=== PATIENT | female | born 1985 | race Two or more races ===

== ENCOUNTER 2025-04-23 14:33 | Emergency (ER) | payer OTHER ==
[~2025-04-23] VITALS: Ht 162.6 cm; Wt 93.6 kg
[2025-04-23 14:36] VITALS: TEMP 97.7
--- NOTE | 2025-04-23 14:58 | ED.PDOC ---
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 Patient states, that she is currently [id number] (LMP on 03/24/25) and has been experiencing spontaneous onset, vaginal bleeding x1day. Patient reports, additional associated symptoms of dull achy back pain. Patient denies any recent sexual intercourse, trauma, injury, fall, or abdominal cramping. No other symptoms or modifying factors are present at this time. Chief Complaint: Vaginal Bleed Time Seen by MD: 14:45 Reviewed Notes: Nurses Notes, Medications, Allergies Allergies: Coded Allergies: NO KNOWN ALLERGIES (Unverified , 04/23/25) Information Source: Patient Mode of Arrival: Ambulatory Timing: Days Prehospital treatment: None Severity: Moderate Vaginal Lesions: None Vaginal Mass: None Onset Of Mass/Bleeding: Spontaneous Sexual Activity: Last Consensual [place]: Unknown Control: None History of: Current Blood Type: Unknown Associated Signs and Symptoms: Vaginal Bleeding Past Medical History PAST MEDICAL HISTORY: Denies Surgical History: Denies all surgeries BABYSITTER History: Denies all BABYSITTER Hx Family History Family History: Unknown Social History Smoker: Non-Smoker Alcohol: Denies ETOH Use Drugs: Denies Drug Use Lives In: Home Constitutional: denies: chills, diaphoresis, fatigue, fever, malaise, sweats, weakness, others EENTM: denies: blurred vision, double vision, ear bleeding, ear discharge, ear drainage, ear pain, ear ringing, eye pain, eye redness, hearing loss, mouth pain, mouth swelling, nasal discharge, nose bleeding, nose congestion, nose pain, photophobia, tearing, throat pain, throat swelling, voice changes, others Respiratory: denies: cough, hemoptysis, orthopnea, SOB at rest, shortness of breath, SOB with excertion, stridor, wheezing, others Cardiovascular: denies: chest pain, dizzy spells, diaphoresis, Dyspnea on exertion, edema, irregular heart beat, left arm pain, lightheadedness, palpita tions, PND, syncope, others Gastrointestinal: denies: abdomen distended, abdominal pain, blood streaked [place]mond wels, constipated, diarrhea, dysphagia, difficulty swallowing, hematemesis, melena, nausea, poor appetite, poor fluid intake, rectal bleeding, rectal pain, vomiting, others Genitourinary: reports: abnormal vagina bleeding; denies: burning, dyspareunia, dysuria, flank pain, frequency, hematuria, incontinence, pain, , vagina discharge, urgency, others Neurological: denies: dizziness, fainting, headache, left sided numbness, left sided weakness, numbness, paresthesia, pre-existing deficit, right sided numbness, right sided weakness, seizure, speech problems, tingling, tremors, weakness, others Musculoskeletal: reports: back pain; denies: gout, joint pain, joint swelling, muscle pain, muscle stiffness, neck pain, others Integumetry: denies: bruises, change in color, change in hair/nails, dryness, laceration, lesions, lumps, rash, wounds, others Allergic/Immunocompromised: denies: Difficulty Healing, Frequent Infections, Hives, Itching, others Hematologic/Lymphatic: denies: anemia, blood clots, easy bleeding, easy bruising, swollen glands, others Endocrine: denies: excessive hunger, excessive sweating, excessive thirst, excessive urination, flushing, intolerance to cold, intolerance to heat, unexplained weight gain, unexplained weight loss, others Psychiatric: denies: anxiety, bipolar disorder, depression, hopeless, panic disorder, schizophrenia, sleepless, suicidal, others All Other Systems: Reviewed and Negative Physical Exam General Appearance: Moderate Distress HEENT: Normal ENT Inspection, Pharynx Normal, TMs Normal Neck: Full Range of Motion, Non-Tender, Normal, Normal Inspection Respiratory: Chest Non-Tender, Lungs Clear, No Accessory Muscle Use, No Respiratory Distress, Normal Breath Sounds Cardiovascular: No Edema, No JVD, No Murmur, No Gallop, Normal Peripheral Pulses, Regular Rate/Rhythm Breast Exam: Deferred Gastrointestinal: No Organomegaly, Non Tender, No Pulsatile Mass, Normal Bowel Sounds, Soft Genitalia: Deferred Pelvic: Deferred Rectal: Deferred Extremities: No calf tenderness, Normal capillary refill, Normal inspection, Normal range of motion, Non-tender, No pedal edema Musculoskeletal : Apperance: Normal Neurologic: Alert, pier hand helper II-XII nml as Tested, No Motor Deficits, Normal Affect, Normal Mood, No Sensory Deficits Cerebellar Function: Normal Reflexes: Normal Skin: Dry, Normal Color, Warm Peripheral Pulses: 3+ Radial (R), 3+ Radial (L) Lymphatic: No Adenopathy Was a procedure done? Was a procedure done?: No Differential Diagnosis (BABYSITTER) Vaginal Bleeding: - Inevitable, - Threatened X-Ray, Labs, Meds, VS Vital Signs Date Time Temp Pulse Resp B/P (MAP) Pulse Ox O2 Delivery O2 Flow Rate FiO2 04/23/25 14:36 97.7 101 18 161/89 100 97.7 Lab Test 04/23/25 17:34 04/23/25 15:10 Range/Units Urine Color Light-yellow Yellow Urine Clarity Clear Clear Urine pH 5.5 5.0-9.0 Urine Specific [place] 1.008 1.001-1.035 Urine Protein Negative Negative Urine Ketones Negative Negative Urine Blood 3+ H Negative /uL Urine Nitrite Negative Negative Urine Bilirubin Negative Negative Urine Urobilinogen Normal Negative mg/dL Urine Leukocyte Esterase 2+ Negative /uL Urine RBC 3 0 - 4 /hpf Urine Microscopic WBC 1 0-5 /HPF Urine Squamous Epithelial Cells Few <5 /hpf Urine Bacteria None seen None Seen /hpf Urine Mucus Few None Seen Urine Glucose Normal Normal mg/dL White Blood Count 8.9 4.4-10.8 10^3/uL Red Blood Count 4.98 4.0-5.20 10^6/uL Hemoglobin 12.8 12.2-16.2 g/dL Hematocrit 38.6 36.0-46.0 % Mean Corpuscular Volume 77.6 L 80.0-100.0 fL Mean Corpuscular Hemoglobin 25.7 L 28.0-32.0 pg Mean Corpuscular Hemoglobin Concent 33.1 32.0-36.0 g/dL Red Cell Distribution Width 17.0 H 11.8-14.3 % Platelet Count 342 140-450 10^3/uL Mean Platelet Volume 8.8 6.9-10.8 fL Neutrophils (%) (Auto) 71.4 37.0-80.0 % Lymphocytes (%) (Auto) 22.1 10.0-50.0 % Monocytes (%) (Auto) 5.0 0.0-12.0 % Eosinophils (%) (Auto) 1.2 0.0-7.0 % Basophils (%) (Auto) 0.3 0.0-2.0 % Neutrophils # (Auto) 6.3 1.6-8.6 10 ^3/uL Lymphocytes # (Auto) 2.0 0.4-5.4 10 ^3/uL Monocytes # (Auto) 0.4 0-1.3 10 ^3/uL Eosinophils # (Auto) 0.1 0-0.8 10 ^3/uL Basophils # (Auto) 0 0-0.2 10 ^3/uL Nucleated Red Blood Cells 0.1 % Sodium Level 139 136-145 mmol/L Potassium Level 4.0 3.5-5.1 mmol/L Chloride Level 105 98-107 mmol/L Carbon Dioxide Level 25 20-31 mmol/L Anion Gap 9 5-15 Blood Urea Nitrogen 9 9-23 mg/dL Creatinine 0.70 0.550-1.02 mg/dL Glomerular Filtration Rate Calc 111 >90 mL/min BUN/Creatinine Ratio 12.9 10.0-20.0 Serum Glucose 109 H 74-106 mg/dL Calcium Level 9.5 8.7-10.4 mg/dL Beta HCG, Quantitative 8690.3 H 1.5-4.2 mIU/mL Patient alert. Came in because of vaginal spotting. Vitals stable. Answering questions. Blood pressure slightly elevated. No acute distress. Was told to take her vitamins. No leg swelling. No chest pain. No shortness a breath. Ultrasound reveals yolk sac. Early . Urinalysis shows UTI. Was given prescription of Keflex antibiotic. Explained to the patient. Continue monitoring. Was told to follow up with her OBGYN. Was told to follow up with her primary care physician. Was told to come back if there is any problem. [place] [address] Ph: [phone] DIAGNOSTIC IMAGING Diagnostic Imaging Report : [id number] Signed PATIENT: FILIBERTO REYESACCT: [id number] UNIT: [id number] : 1985 LOC: ER ROOM / BED: / AGE / SEX: 39 / F ADM STATUS: REG ER SERVICE 1452 ORDERING PHYSICIAN: DAMIAN MANNING MD PROCEDURE(s): OB4US - OB ULTRASOUND COMP LESS 14WKS REASON: bleeding ORDER NUMBER(s): [id number], ACCESSION NUMBER(s): [id number] EXAM: US OB ULTRASOUND COMP LESS 14WKS, US OB TRANS VAGINAL US HISTORY: bleeding COMPARISON: None TECHNIQUE: Transabdominal and transvaginal imaging was utilized. Grayscale and color doppler evaluation. Images were stored in the patient's permanent medical record. FINDINGS: UTERUS: 10.3 x 6.3 x 4.6 cm. Small gestational sac with yolk sac gestational sac measures 0.7 cm. No visualized pole. RIGHT OVARY: 2.5 x 2.6 x 1.9 cm.Normal vascularity. No suspicious masses or cysts. LEFT OVARY: 2.6 x 2.8 x 1.9 cm. Normal vascularity. No suspicious masses or cysts. Left ovarian follicle. OTHER: There is trace free fluid in the pelvis which is non-specific. Nabothian cysts. IMPRESSION: 1. Small gestational sac with yolk sac. 2. No visualized pole at this time. ATED BY: ESTEBAN RAVI MD DICTATED DATE/TIME: 04/23/251731 SIGNED BY: ESTEBAN RAVI MD SIGNED DATE/TIME: 04/23/251731 CC: [place] [id number] Ph: [phone] DIAGNOSTIC IMAGING Diagnostic Imaging Report : [id number] Signed PATIENT: JAMILAH REYEST: [id number] UNIT: [id number] : 1985 LOC: ER ROOM / BED: / AGE / SEX: 39 / F ADM STATUS: REG ER SERVICE 56 ORDERING PHYSICIAN: DAMIAN MANNING MD PROCEDURE(s): OBTVG - OB TRANS VAGINAL US REASON: VAG BLEED ORDER NUMBER(s): [id number], ACCESSION NUMBER(s): [id number] EXAM: US OB ULTRASOUND COMP LESS 14WKS, US OB TRANS VAGINAL US HISTORY: bleeding COMPARISON: None TECHNIQUE: Transabdominal and transvaginal imaging was utilized. Grayscale and color doppler evaluation. Images were stored in the patient's permanent medical record. FINDINGS: UTERUS: 10.3 x 6.3 x 4.6 cm. Small gestational sac with yolk sac gestational sac measures 0.7 cm. No visualized pole. RIGHT OVARY: 2.5 x 2.6 x 1.9 cm.Normal vascularity. No suspicious masses or cysts. LEFT OVARY: 2.6 x 2.8 x 1.9 cm. Normal vascularity. No suspicious masses or cysts. Left ovarian follicle. OTHER: There is trace free fluid in the pelvis which is non-specific. Nabothian cysts. IMPRESSION: 1. Small gestational sac with yolk sac. 2. No visualized pole at this time. ATED BY: ESTEBAN RAVI MD DICTATED DATE/TIME: 04/23/251731 SIGNED BY: ESTEBAN RAVI MD SIGNED DATE/TIME: 04/23/251731 CC: Time of 1ST Reevaluation: 15:15 Reevaluation 1ST: Unchanged Patient Education/Counseling: Diagnosis, Treatment Family Education/Counseling: No Family Present Departure 1 Departure Time of Disposition: 15:03 Impression: Primary Impression: Vaginal bleeding affecting early Additional Impression: UTI (urinary tract infection) Qualified Codes: N30.00 - Acute cystitis without hematuria Disposition: 01 HOME / SELF CARE / HOMELESS Condition: Good e-Prescriptions Cephalexin (KEFLEX CAPSULE) 250 Mg Cp 500 MG PO QID for 5 Days, #20 BOTTLE Prov: DAMIAN MANNING MD 04/23/25 Discharged With: Self Critical Care Note Critical Care Time?: No Stability Stability form required: No Heart Score Heart Score: Heart Score Response (Comments) Value History N/A 0 EKG N/A 0 Age N/A 0 Risk Factors N/A 0 Troponin N/A 0 Total 0 I personally scribed for DAMIAN MANNING MD ([email or web address]) on 04/23/25 at 14:58. Electronically submitted by Pearl Vargas ([email or web address]). I personally scribed for DAMIAN MANNING MD ([email or web address]) on 04/23/25 at 17:37. Electronically submitted by Pearl Vargas ([email or web address] ([email or web address])). I personally scribed for DAMIAN MANNING MD ([email or web address]) on 04/23/25 at 17:38. Electronically submitted by Pearl Vargas ([email or web address]). DAMIAN MANNING MD Apr 23, 2025 14:58
[2025-04-23 15:44] LABS: Hematocrit 38.6 % (36.0-46.0); Hemoglobin 12.8 g/dL (12.2-16.2); Mean Corpuscular Hemoglobin 25.7 pg (28.0-32.0); Mean Corpuscular Volume 77.6 fL (80.0-100.0); Nucleated Red Blood Cells % 0.1 %
[2025-04-23 15:48] LABS: Chloride 105 mmol/L (98-107); Potassium 4.0 mmol/L (3.5-5.1); Sodium 139 mmol/L (136-145)
[2025-04-23 15:49] LABS: Anion Gap 9 (5-15); Calcium 9.5 mg/dL (8.7-10.4); Carbon Dioxide 25 mmol/L (20-31)
[2025-04-23 15:54] LABS: BUN/Creatinine Ratio 12.9 (10.0-20.0)
[2025-04-23 15:55] LABS: Blood Urea Nitrogen 9 mg/dL (9-23); Glucose 109 mg/dL (74-106)
--- NOTE | 2025-04-23 17:35 | DVH ---
EXAM: US OB ULTRASOUND COMP LESS 14WKS, US OB TRANS VAGINAL US HISTORY: bleeding COMPARISON: None TECHNIQUE: Transabdominal and transvaginal imaging was utilized. Grayscale and color doppler evaluati on. Images were stored in the patient's permanent medical record. FINDINGS: UTERUS: 10.3 x 6.3 x 4.6 cm. Small gestational sac with yolk sac gestational sac measures 0.7 cm. No visualized pole. RIGHT OVARY: 2.5 x 2.6 x 1.9 cm.Normal vascularity. No suspicious masses or cysts. LEFT OVARY: 2.6 x 2.8 x 1.9 cm. Normal vascularity. No suspicious masses or cysts. Left ovarian folli yahaira. OTHER: There is trace free fluid in the pelvis which is non-specific. Nabothian cysts. IMPRESSION: 1. Small gestational sac with yolk sac. 2. No visualized pole at this time.
[2025-04-23 17:43] LABS: Urine Protein, UAD Negative (Negative)
[2025-04-23] MEDS ORDERED: CEPH250C PO (17:46)
[2025-04-23 18:22] VITALS: BP 146/104; PULSE 112; RESP 16; O2SAT 99
== END 2025-04-23 18:23 | disposition home or self-care (01) ==
LOC: ER 14:33
DX: Z34.90 Encounter for supervision of normal pregnancy, unspecified, unspecified trimester (principal); N39.0 Urinary tract infection, site not specified; Z3A.00 Weeks of gestation of pregnancy not specified
CPT/HCPCS: 36415; 76801; 76817; 80048; 81001; 84702; 85025

== ENCOUNTER 2025-05-06 09:12 | Emergency (ER) | payer OTHER ==
[~2025-05-06] VITALS: Ht 162.6 cm; Wt 93.9 kg
[~2025-05-06 09:12] MED LIST: CEPH250C PO
--- NOTE | 2025-05-06 10:15 | ED.PDOC ---
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 Patient is currently seven weeks , was seen 04/23/2025 for similar symptoms. She states she noticed vaginal bleeding last night, this morning when she woke up bleeding slightly increased. She is also experiencing abdominal cramping. She called OBGYN Dr. Gomez this morning and was told to come to ED. P:1 M:3. Denies any PMHx is one, chills, dysuria, chest pain, shortness a breath, dizziness, headache, vaginal discharge. No other symptoms or modifying factors present at this time Chief Complaint: Abdominal Pain Time Seen by MD: 09:45 Reviewed Notes: Medications, Allergies Allergies: Coded Allergies: NO KNOWN ALLERGIES (Unverified , 04/23/25) Home Meds Active Scripts Cephalexin (KEFLEX CAPSULE) 250 Mg Cp, 500 MG PO QID for 5 Days, #20 BOTTLE Prov:DAMIAN MANNING MD 04/23/25 Information Source: Patient Mode of Arrival: Ambulatory Timing: Days Prehospital treatment: None Severity: Moderate Vaginal Discharge: None Vaginal Lesions: None Bleeding Quality: Bright Red Vaginal Mass: None Onset Of Mass/Bleeding: Spontaneous Sexual Activity: Last Consensual [place]: Unknown Control: None History of: Current Symptoms of Possible : Missed Period Associated Signs and Symptoms: Vaginal Bleeding, Cramping Past Medical History PAST MEDICAL HISTORY: Denies Surgical History: Denies all surgeries 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 GUARD 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: 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 ARMED GUARD Hx Family History Family History: Unknown Social History Smoker: Non-Smoker Alcohol: Denies ETOH Use Drugs: Denies Drug Use Lives In: Home Constitutional: denies: chills, diaphoresis, fatigue, fever, malaise, sweats, weakness, others EENTM: denies: blurred vision, double vision, ear bleeding, ear discharge, ear drainage, ear pain, ear ringing, eye pain, eye redness, hearing loss, mouth pain, mouth swelling, nasal discharge, nose bleeding, nose congestion, nose pain, photophobia, tearing, throat pain, throat swelling, voice changes, others Respiratory: denies: cough, hemoptysis, orthopnea, SOB at rest, shortness of breath, SOB with excertion, stridor, wheezing, others Cardiovascular: denies: chest pain, dizzy spells, diaphoresis, Dyspnea on exertion, edema, irregular heart beat, left arm pain, lightheadedness, palpitations, PND, syncope, others Gastrointestinal: denies: abdomen distended, abdominal pain, blood streaked bowels, constipated, diarrhea, dysphagia, difficulty swallowing, hematemesis, melena, nausea, poor appetite, poor fluid intake, rectal bleeding, rectal pain, vomiting, others Genitourinary: reports: abnormal vagina bleeding, ; denies: burning, dyspareunia, dysuria, flank pain, frequency, hematuria, incontinence, pain, vagina discharge, urgency, others Neurological: denies: dizziness, fainting, headache, left sided numbness, left sided weakness, numbness, paresthesia, pre-existing deficit, right sided numbness, right sided weakness, seizure, speech problems, tingling, tremors, weakness, others Musculoskeletal: denies: back pain, gout, joint pain, joint swelling, muscle pain, muscle stiffness, neck pain, others Integumetry: denies: bruises, change in color, change in hair/nails, dryness, laceration, lesions, lumps, rash, wounds, others Allergic/Immunocompromised: denies: Difficulty Healing, Frequent Infections, Hives, Itching, others Hematologic/Lymphatic: denies: anemia, blood clots, easy bleeding, easy bruising, swollen glands, others Endocrine: denies: excessive hunger, excessive sweating, excessive thirst, excessive urination, flushing, intolerance to cold, intolerance to heat, unexplained weight gain, unexplained weight loss, others Psychiatric: denies: anxiety, bipolar disorder, depression, hopeless, panic disorder, schizophrenia, sleepless, suicidal, others All Other Systems: Reviewed and Negative Physical Exam General Appearance: No Apparent Distress, Normal HEENT: Normal ENT Inspection, Pharynx Normal, TMs Normal Neck: Full Range of Motion, Non-Tender, Normal, Normal Inspection Respiratory: Chest Non-Tender, Lungs Clear, No Accessory Muscle Use, No Respiratory Distress, Normal Breath Sounds Cardiovascular: No Edema, No JVD, No Murmur, No Gallop, Normal Peripheral Pulses, Regular Rate/Rhythm Breast Exam: Deferred Gastrointestinal: No Organomegaly, Non Tender, No Pulsatile Mass, Normal Bowel Sounds, Soft Genitalia: Deferred Pelvic: Deferred Rectal: Deferred Extremities: No calf tenderness, Normal capillary refill, Normal inspection, Normal range of motion, Non-tender, No pedal edema Musculoskeletal : Apperance: Normal Neurologic: 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 Was a procedure done?: No X-Ray, Labs, Meds, VS Vital Signs Date Time Temp Pulse Resp B/P (MAP) Pulse Ox O2 Delivery O2 Flow Rate FiO2 05/06/25 09:15 98.8 87 15 159/86 98 98.8 Time of 1ST Reevaluation: 10:15 Reevaluation 1ST: Unchanged Patient Education/Counseling: Diagnosis, Treatment, Prognosis Family Education/Counseling: No Family Present Critical Care Note Critical Care Time?: No Stability Stability form required: No I personally scribed for DAMIAN MANNING MD ([email or web address]) on 05/06/25 at 10:15. Electronically submitted by Gino Beal ([email or web address]). I personally scribed for DAMIAN MANNING MD ([email or web address]) on 05/06/25 at 10:26. Electronically submitted by Kacie Hopkins ([email or web address]). DAMIAN MANNING MD May 06, 2025 10:15
--- NOTE | 2025-05-06 10:28 | ED.PDOC ---
[facility] HPI Comments 39-year-old female presents to the ED with a chief complaint of vaginal bleeding onset last night. Patient is currently seven weeks , was seen 04/23/2025 for similar symptoms. She states she noticed vaginal bleeding last night, this morning when she woke up bleeding slightly increased. She is also experiencing abdominal cramping. She called OBGYN Dr. Gomez this morning and was told to come to ED. P:1 M:3. Denies any PMHx is one, chills, dysuria, chest pain, shortness a breath, dizziness, headache, vaginal discharge. No other symptoms or modifying factors present at this time Chief Complaint: Abdominal Pain Time Seen by MD: 09:45 Reviewed Notes: Medications, Allergies Allergies: Coded Allergies: NO KNOWN ALLERGIES (Unverified , 04/23/25) Home Meds Active Scripts Cephalexin (KEFLEX CAPSULE) 250 Mg Cp, 500 MG PO QID for 5 Days, #20 BOTTLE Prov:DAMIAN MANNING MD 04/23/25 Information Source: Patient Mode of Arrival: Ambulatory Timing: Days Prehospital treatment: None Severity: Moderate Vaginal Discharge: None Vaginal Lesions: None Bleeding Quality: Bright Red Vaginal Mass: None Onset Of Mass/Bleeding: Spontaneous Sexual Activity: Control: None History of: Current Symptoms of Possible : Missed Period Associated Signs and Symptoms: Vaginal Bleeding, Cramping Past Medical History PAST MEDICAL HISTORY: Denies Surgical History: Denies all surgeries 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 Family History Family History: Unknown Social History Smoker: Non-Smoker Alcohol: Denies ETOH Use Drugs: Denies Drug Use Lives In: Home Constitutional: denies: chills, diaphoresis, fatigue, fever, malaise, sweats, weakness, others EENTM: denies: blurred vision, double vision, ear bleeding, ear discharge, ear drainage, ear pain, ear ringing, eye pain, eye redness, hearing loss, mouth pain, mouth swelling, nasal discharge, nose bleeding, nose congestion, nose pain, photophobia, tearing, throat pain, throat swelling, voice changes, others Respiratory: denies: cough, hemoptysis, orthopnea, SOB at rest, shortness of breath, SOB with excertion, stridor, wheezing, others Cardiovascular: denies: chest pain, dizzy spells, diaphoresis, Dyspnea on exertion, edema, irregular heart beat, left arm pain, lightheadedness, palp itations, PND, syncope, others Gastrointestinal: denies: abdomen distended, abdominal pain, blood streaked bowels, constipated, diarrhea, dysphagia, difficulty swallowing, hematemesis, melena, nausea, poor appetite, poor fluid intake, rectal bleeding, rectal pain, vomiting, others Genitourinary: reports: abnormal vagina bleeding, ; denies: burning, dyspareunia, dysuria, flank pain, frequency, hematuria, incontinence, pain, vagina discharge, urgency, others Neurological: denies: dizziness, fainting, headache, left sided numbness, left sided weakness, numbness, paresthesia, pre-existing deficit, right sided numbness, right sided weakness, seizure, speech problems, tingling, tremors, weakness, others Musculoskeletal: denies: back pain, gout, joint pain, joint swelling, muscle pain, muscle stiffness, neck pain, others Integumetry: denies: bruises, change in color, change in hair/nails, dryness, laceration, lesions, lumps, rash, wounds, others Allergic/Immunocompromised: denies: Difficulty Healing, Frequent Infections, Hives, Itching, others Hematologic/Lymphatic: denies: anemia, blood clots, easy bleeding, easy bruising, swollen glands, others Endocrine: denies: excessive hunger, excessive sweating, excessive thirst, excessive urination, flushing, intolerance to cold, intolerance to heat, unex plained weight gain, unexplained weight loss, others Psychiatric: denies: anxiety, bipolar disorder, depression, hopeless, panic disorder, schizophrenia, sleepless, suicidal, others All Other Systems: Reviewed and Negative Physical Exam General Appearance: Moderate Distress HEENT: Normal ENT Inspection, Pharynx Normal, TMs Normal Neck: Full Range of Motion, Non-Tender, Normal, Normal Inspection Respiratory: Chest Non-Tender, Lungs Clear, No Accessory Muscle Use, No Respiratory Distress, Normal Breath Sounds Cardiovascular: No Edema, No JVD, No Murmur, No Gallop, Normal Peripheral Pulses, Regular Rate/Rhythm Breast Exam: Deferred Gastrointestinal: No Organomegaly, Non Tender, No Pulsatile Mass, Normal Bowel Sounds, Soft Genitalia: Deferred Pelvic: Deferred Rectal: Deferred Extremities: No calf tenderness, Normal capillary refill, Normal inspection, Normal range of motion, Non-tender, No pedal edema Musculoskeletal : Apperance: Normal Neurologic: Alert, residential nurse II-XII nml as Tested, No Motor Deficits, Normal Affect, Normal Mood, No Sensory Deficits Cerebellar Function: Normal Reflexes: Normal Skin: Dry, Normal Color, Warm Peripheral Pulses: 3+ Radial (R), 3+ Radial (L) Lymphatic: No Adenopathy Was a procedure done? Was a procedure done?: No Differential Diagnosis (HYDROGEN POWER PLANT ENGINEER) Vaginal Bleeding: - Complete, - Incomplete, - Inevitable, - Missed, - Threatened X-Ray, Labs, Meds, VS Vital Signs Date Time Temp Pulse Resp B/P (MAP) Pulse Ox O2 Delivery O2 Flow Rate FiO2 05/06/25 09:15 98.8 87 15 159/86 98 98.8 Lab Test 05/06/25 10:55 05/06/25 09:28 Range/Units White Blood Count 8.0 4.4-10.8 10^3/uL Red Blood Count 4.78 4.0-5.20 10^6/uL Hemoglobin 12.3 12.2-16.2 g/dL Hematocrit 36.4 36.0-46.0 % Mean Corpuscular Volume 76.1 L 80.0-100.0 fL Mean Corpuscular Hemoglobin 25.6 L 28.0-32.0 pg Mean Corpuscular Hemoglobin Concent 33.7 32.0-36.0 g/dL Red Cell Distribution Width 17.0 H 11.8-14.3 % Platelet Count 344 140-450 10^3/uL Mean Platelet Volume 8.4 6.9-10.8 fL Neutrophils (%) (Auto) 74.3 37.0-80.0 % Lymphocytes (%) (Auto) 20.8 10.0-50.0 % Monocytes (%) (Auto) 4.4 0.0-12.0 % Eosinophils (%) (Auto) 0.3 0.0-7.0 % Basophils (%) (Auto) 0.2 0.0-2.0 % Neutrophils # (Auto) 6.0 1.6-8.6 10 ^3/uL Lymphocytes # (Auto) 1.7 0.4-5.4 10 ^3/uL Monocytes # (Auto) 0.4 0-1.3 10 ^3/uL Eosinophils # (Auto) 0 0-0.8 10 ^3/uL Basophils # (Auto) 0 0-0.2 10 ^3/uL Nucleated Red Blood Cells 0.0 % Beta HCG, Quantitative 024071.4 H 1.5-4.2 mIU/mL Urine Color Yellow Yellow Urine Clarity Turbid H Clear Urine pH 6.0 5.0-9.0 Urine Specific Arnold 1.022 1.001-1.035 Urine Protein Negative Negative Urine Ketones Negative Negative Urine Blood Negative Negative /uL Urine Nitrite Negative Negative Urine Bilirubin Negative Negative Urine Urobilinogen Normal Negative mg/dL Urine Leukocyte Esterase Negative Negative /uL Urine RBC 1 0 - 4 /hpf Urine Microscopic WBC 3 0-5 /HPF Urine Squamous Epithelial Cells Few <5 /hpf Urine Bacteria None seen None Seen /hpf Urine Mucus Few None Seen Urine Glucose Normal Normal mg/dL Patient alert. Complaining of vaginal bleeding. Vitals stable. Answering questions. Hemoglobin within normal limits. WBC within normal limits. Blood pressure slightly elevated. Explained to the patient about hypotension . Beta hCG appropriate. Ultrasound revealed normal . Urinalysis within normal limits. Was told to follow up with her OBGYN. Was told to follow up with her primary care physician. Was told to come back if there is any problem. [place] [address] Ph: [phone] DIAGNOSTIC IMAGING Diagnostic Imaging Report : [id number] Signed PATIENT: FILIBERTO REYESACCT: [id number] UNIT: [id number] : 1985 LOC: ER ROOM / BED: / AGE / SEX: 39 / F ADM STATUS: REG ER SERVICE 1038 ORDERING PHYSICIAN: DAMIAN MANNING MD PROCEDURE(s): OB4US - OB ULTRASOUND COMP LESS 14WKS REASON: spotting ORDER NUMBER(s): [id number], ACCESSION NUMBER(s): [id number] OB ULTRASOUND <14 WEEKS: HISTORY: spotting TECHNIQUE: Multiple real-time grayscale sonographic images of the pelvis with duplex Doppler color flow, spectral and M-mode analysis. TRANSDUCERS: Transabdominal. FINDINGS: The uterus measures 8.1 x 7.4 x 6.1 cm. The uterus is heterogeneous with multiple intrauterine fibroids with the largest measuring 2.1 cm. The cervix not visualized. Right ovary measures 2.9 x 1.0 x 2.7 cm with normal Doppler color flow Left ovary measures 2.6 x 2.7 x 2.2 cm with normal Doppler color flow . There is a left ovarian corpus luteal cyst measuring 1.4 cm. IUP single live fetus at 7 weeks 0 days average ultrasound age based on mean crown-rump length of 0.9 cm and gestational sac size of 2.4 cm heart rate detected at 150 beats per minute. Yolk sac visualized. IMPRESSION: IUP single live fetus 7 weeks 0 days AUA corresponding to an VERÓNICA of 12/23/2025. No acute abnormality detected. ATED BY: RHODA CONRAD MD DICTATED DATE/TIME: 05/06/25 1254 SIGNED BY: RHODA CONRAD MD SIGNED DATE/TIME: 05/06/25 1254 CC: Time of 1ST Reevaluation: 10:15 Reevaluation 1ST: Unchanged Patient Education/Counseling: Diagnosis, Treatment, Prognosis Family Education/Counseling: No Family Present Departure 1 Departure Time of Disposition: 10:15 Impression: Primary Impression: Vaginal bleeding affecting early Disposition: 01 HOME / SELF CARE / HOMELESS Condition: Good Discharged With: Self Critical Care Note Critical Care Time?: No Stability Stability form required: No Heart Score Heart Score: Heart Score Response (Comments) Value History N/A 0 EKG N/A 0 Age N/A 0 Risk Factors N/A 0 Troponin N/A 0 Total 0 I personally scribed for DAMIAN MANNING MD ([email or web address]) on 05/06/25 at 10:28. Electronically submitted by Kacie Hopkins ([email or web address]). I personally scribed for DAMIAN MANNING MD ([email or web address]) on 05/06/25 at 13:22. Electronically submitted by Kacie Hopkins ([email or web address]). DAMIAN MANNING MD May 06, 2025 10:28
[2025-05-06 11:13] LABS: Hematocrit 36.4 % (36.0-46.0); Hemoglobin 12.3 g/dL (12.2-16.2); Nucleated Red Blood Cells % 0.0 %
[2025-05-06 11:16] LABS: Mean Corpuscular Hemoglobin 25.6 pg (28.0-32.0); Mean Corpuscular Volume 76.1 fL (80.0-100.0)
[2025-05-06 11:23] LABS: Urine Protein, UAD Negative (Negative)
--- NOTE | 2025-05-06 12:57 | DVH ---
OB ULTRASOUND <14 WEEKS: HISTORY: spotting TECHNIQUE: Multiple real-time grayscale sonographic images of the pelvis with duplex Doppler color f low, spectral and M-mode analysis. TRANSDUCERS: Transabdominal. FINDINGS: The uterus measures 8.1 x 7.4 x 6.1 cm. The uterus is heterogeneous with multiple intrauterine fibroi ds with the largest measuring 2.1 cm. The cervix not visualized. Right ovary measures 2.9 x 1.0 x 2.7 cm with normal Doppler color flow Left ovary measures 2.6 x 2.7 x 2.2 cm with normal Doppler color flow . There is a left ovarian yasmine us luteal cyst measuring 1.4 cm. IUP single live fetus at 7 weeks 0 days average ultrasound age based on mean crown-rump length of 0.9 cm and gestational sac size of 2.4 cm heart rate detected at 150 beats per minute. Yolk sac visualized. IMPRESSION: IUP single live fetus 7 weeks 0 days AUA corresponding to an VERÓNICA of 12/23/2025. No acute abnormality detected.
[2025-05-06 13:36] VITALS: BP 137/67; PULSE 75; RESP 16; TEMP 98.7; O2SAT 97
== END 2025-05-06 13:39 | disposition home or self-care (01) ==
LOC: ER 09:12
DX: O20.9 Hemorrhage in early pregnancy, unspecified (principal); Z79.899 Other long term (current) drug therapy; Z3A.01 Less than 8 weeks gestation of pregnancy
CPT/HCPCS: 36415; 76801; 81001; 84702; 85025

== ENCOUNTER 2025-05-24 12:01 | Emergency (ER) | payer OTHER ==
[~2025-05-24] VITALS: Ht 170.2 cm; Wt 97.1 kg
--- NOTE | 2025-05-24 13:41 | ED.PDOC ---
History of Present Illness HPI Comments 39 y.o female presents to the ED for an evaluation of HBP. 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 Patient was sent to the ED and states she has been seen multiple times for this compliant during her . Patient is asymptomatic. She states increased stress and since d/c Prozac given , her anxiety has been more present. 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 Family History Family History: Unknown Social History Smoker: Non-Smoker Alcohol: Denies ETOH Use Drugs: Denies Drug Use Lives In: Home Constitutional: denies: chills, diaphoresis, fatigue, fever, malaise, sweats, weakness, others EENTM: denies: blurred vision, double vision, ear bleeding, ear discharge, ear drainage, ear pain, ear ringing, eye pain, eye redness, hearing loss, mouth pain, mouth swelling, nasal discharge, nose bleeding, nose congestion, nose pain, photophobia, tearing, throat pain, throat swelling, voice changes, others Respiratory: denies: cough, hemoptysis, orthopnea, SOB at rest, shortness of breath, SOB with excertion, stridor, wheezing, others Cardiovascular: denies: chest pain, dizzy spells, diaphoresis, Dyspnea on exertion, edema, irregular heart beat, left arm pain, lightheadedness, palpitations, PND, syncope, others Gastrointestinal: denies: abdomen distended, abdominal pain, blood streaked bowels, constipated, diarrhea, dysphagia, difficulty swallowing, hematemesis, melena, nausea, poor appetite, poor fluid intake, rectal bleeding, rectal pain, vomiting, others Genitourinary: denies: abnormal vagina bleeding, burning, dyspareunia, dysuria, flank pain, frequency, hematuria, incontinence, pain, , vagina discharge, urgency, others Neurological: denies: dizziness, fainting, headache, left sided numbness, left sided weakness, numbness, paresthesia, pre-existing deficit, right sided numbness, right sided weakness, seizure, speech problems, tingling, tremors, weakness, others Musculoskeletal: denies: back pain, gout, joint pain, joint swelling, muscle pain, muscle stiffness, neck pain, others Integumetry: denies: bruises, change in color, change in hair/nails, dryness, laceration, lesions, lumps, rash, wounds, others Allergic/Immunocompromised: denies: Difficulty Healing, Frequent Infections, Hives, Itching, others Hematologic/Lymphatic: denies: anemia, blood clots, easy bleeding, easy bruising, swollen glands, others Endocrine: denies: excessive hunger, excessive sweating, excessive thirst, excessive urination, flushing, intolerance to cold, intolerance to heat, unexplained weight gain, unexplained weight loss, others Psychiatric: denies: anxiety, bipolar disorder, depression, hopeless, panic disorder, schizophrenia, sleepless, suicidal, others All Other Systems: Reviewed and Negative Physical Exam General Appearance: Moderate Distress HEENT: Normal ENT Inspection, Pharynx Normal, TMs Normal Neck: Full Range of Motion, Non-Tender, Normal, Normal Inspection Respiratory: Chest Non-Tender, Lungs Clear, No Accessory Muscle Use, No Respiratory Distress, Normal Breath Sounds Cardiovascular: No Edema, No JVD, No Murmur, No Gallop, Normal Peripheral Pulses, Regular Rate/Rhythm Breast Exam: Deferred Gastrointestinal: No Organomegaly, Non Tender, No Pulsatile Mass, Normal Bowel Sounds, Soft Genitalia: Deferred Pelvic: Deferred Rectal: Deferred Extremities: No calf tenderness, Normal capillary refill, Normal inspection, Normal range of motion, Non-tender, No pedal edema Musculoskeletal : Apperance: Normal Neurologic: Alert, 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 Was a procedure done?: No Differential Dx Considerations may include: gestational hypertension, preeclampsia X-Ray, Labs, Meds, VS Vital Signs Date Time Temp Pulse Resp B/P (MAP) Pulse Ox O2 Delivery O2 Flow Rate FiO2 05/24/25 15:56 68 16 158/108 (125) 100 05/24/25 15:07 76 172/108 05/24/25 14:00 98.2 81 16 178/92 (120) 99 98.2 05/24/25 12:03 97.9 86 16 151/80 100 97.9 Lab Test 05/24/25 13:36 Range/Units Beta HCG, Quantitative > 287326.0 H 1.5-4.2 mIU/mL Current Medications Medications (Trade) Dose Ordered Sig/Constance Route Start Time Stop Time Status Last Admin Labetalol HCl (Normodyne Tablet) 200 mg ONCE ONCE PO 05/24/25 15:00 05/24/25 15:01 DC 05/24/25 15:07 Patient alert. Vitals stable. Answering questions. Ambulating. She is anxious. Denies abdominal pain. No urinary symptoms. She states that she has no symptoms pain No headache. No dizziness. No leg swelling. Insists on going home. Explained to the patient that she needs to relax more to make sure her blood pressure is under better control. Blood pressure systolic 170 on discharge. Explained to the patient. Was told to follow up with her primary care physician. Was told to come back if there is any problem. Time of 1ST Reevaluation: 13:38 Reevaluation 1ST: Improved Patient Education/Counseling: Diagnosis, Treatment, Prognosis Family Education/Counseling: No Family Present SEPSIS Sepsis Screen Date sepsis recognized/suspect: May 24, 2025 Time Sepsis recognized/suspect: 120 Recent Procedure: No On Antibiotic Therapy: No Respiratory Rate >20: No Heart Rate >90: No Temp<36 C (96.8 F) or >38.3 C: No SBP <90 or MAP <65 mmHG: No New Acute Mental Status Change: No Is the patient on CPAP, BIPAP,: No Physician Orders Urinalysis (05/24/25 13:19) Vital Signs Date Time Temp Pulse Resp B/P (MAP) Pulse Ox O2 Delivery O2 Flow Rate FiO2 05/24/25 15:56 68 16 158/108 (125) 100 05/24/25 15:07 76 172/108 05/24/25 14:00 98.2 81 16 178/92 (120) 99 98.2 05/24/25 12:03 97.9 86 16 151/80 100 97.9 Medications Medications Dose Ordered Sig/Constance Route Start Time Stop Time Status Last Admin Dose Admin Labetalol HCl 200 mg ONCE ONCE PO 05/24/25 15:00 05/24/25 15:01 DC 05/24/25 15:07 Departure 1 Departure Time of Disposition: 16:44 Impression: Primary Impression: Hypertensive urgency Disposition: 01 HOME / SELF CARE / HOMELESS Condition: Good Discharged With: Self Critical Care Note Critical Care Time?: No Stability Stability form required: No Heart Score Heart Score: Heart Score Response (Comments) Value History N/A 0 EKG N/A 0 Age N/A 0 Risk Factors N/A 0 Troponin N/A 0 Total 0 I personally scribed for DAMIAN MANNING MD ([email or web address]) on 05/24/25 at 13:41. Electronically submitted by Sveta Reyes ([facility]). DAMIAN MANNING MD May 24, 2025 13:41
[2025-05-24 14:00] VITALS: TEMP 98.2
[2025-05-24] MEDS: LABETALOL HCL 200 MG TAB PO ONE (15:07)
[2025-05-24 15:56] VITALS: BP 158/108; PULSE 68; RESP 16; O2SAT 100
== END 2025-05-24 17:03 | disposition home or self-care (01) ==
LOC: ER 12:01
DX: O99.341 Other mental disorders complicating pregnancy, first trimester (principal); I16.0 Hypertensive urgency; Z79.899 Other long term (current) drug therapy; Z3A.09 9 weeks gestation of pregnancy
CPT/HCPCS: 36415; 84702

== ENCOUNTER 2025-08-19 23:44 | Observation (INO) | payer OTHER ==
[~2025-08-19] VITALS: Ht 162.6 cm; Wt 94.8 kg
--- NOTE | 2025-08-20 04:26 | DVH ---
LIMITED OB ULTRASOUND > 14 WKS: HISTORY: placental intergrity TECHNIQUE: Multiple real-time grayscale images of the gravid uterus with duplex Doppler color flow and M-mode spectral analysis. FINDINGS: There is an intrauterine in breech position. The heart rate measures 142 beats per minute. The placenta is grade 1, anterior without evidence of previa or abruption. ARTIE not measured. MVP measures 5.7 cm. Cervix measures 3.2 cm in length and appears to be closed. Bulging of the myometrium near the cervix. IMPRESSION: 1. No evidence of placental previa or abruption. 2. Intrauterine in breech position with cardiac activity measuring 142 beats per minute.
[2025-08-20] MEDS ORDERED: PROG200C21 PO (12:14)
--- NOTE | 2025-08-20 20:18 | DVHDS2 ---
Physician Discharge Progress N Final Diagnosis: 22yo IUP@22.1wks well being established s/p fall on abdomen Operations or Procedures: Operations or Procedures S: 22yo IUP@22.1wks presents to OB triage after falling on abdomen. +FM, denies UCs/LOF/VB/SAUNDERS/vision changes/RUQ pain. PNC was with Dr. Gomez but was transferred to higher level of care due to high risk status (chronic hypertension on labetalol) O: VSS prior to D/C +FHR per RN TOCO: no UCs No VB seen and abdomen palpated soft per RN A: 22yo IUP@22.1wks well being established s/p fall on abdomen P: D/C home Rx sent for progesterone f/u with new high risk primary OB as scheduled Dr. Gomez consulted, agrees with POC Other Interventions Other Interventions [place] [address] Ph: [phone] DIAGNOSTIC IMAGING Diagnostic Imaging Report : [id number] Signed PATIENT: FILIBERTO REYESACCT: [id number] UNIT: [id number] : 1985 LOC: [facility] ROOM / BED: TRIAGE2 / A AGE / SEX: 39 / F ADM STATUS: DIS IN SERVICE ORDERING PHYSICIAN: BHANU COCHRAN CNM PROCEDURE(s): OBLTD - OBSTERICAL LIMITED REASON: placental intergrity ORDER NUMBER(s): [id number], ACCESSION NUMBER(s): [id number] LIMITED OB ULTRASOUND > 14 WKS: HISTORY: placental intergrity TECHNIQUE: Multiple real-time grayscale images of the gravid uterus with duplex Doppler color flow and M-mode spectral analysis. FINDINGS: There is an intrauterine in breech position. The heart rate measures 142 beats per minute. The placenta is grade 1, anterior without evidence of previa or abruption. ARTIE not measured. MVP measures 5.7 cm. Cervix measures 3.2 cm in length and appears to be closed. Bulging of the myometrium near the cervix. IMPRESSION: 1. No evidence of placental previa or abruption. 2. Intrauterine in breech position with cardiac activity measuring 142 beats per minute. ATED BY: NIK BOLDEN MD DICTATED DATE/TIME: 08/20/25423 SIGNED BY: NIK BOLDEN MD SIGNED DATE/TIME: 08/20/25423 CC: Condition on Discharge: Stable Disposition: Home Discharge Instructions: Diet: Regular Activity: See Comment Activity comment: pelvic rest and no sex Medications: Progesterone, see med list Follow Up Care: Specialist: f/u with new high risk primary OB as scheduled Discharge Statement: "Patient was advised to return to the ER or call 911 if any headaches, dizziness, shortness of breath, chest pain, abdominal pain, bleeding, fevers, or worsening of medical condition. Patient was counseled about treatment plan, medications, possible side effects, patientverbalized understanding. All questions were answered to the best of my ability. This discharge took greater then 30 minutes in planning, reviewing documentation, counseling the patient, and discussing with other team members." Visit Coding OBGYN Date of Service: Aug 20, 2025 Billing Provider: BHANU COCHRAN CNM FELT CHECKER Common Visit Codes: [id number] OBS CARE (HIGH) BHANU COCHRAN CNM Aug 20, 2025 20:18
== END 2025-08-20 02:13 | disposition home or self-care (01) ==
LOC: LDRP 23:44
PROVIDERS: ADMIT Obstetrics & Gynecology; ATTEND Obstetrics & Gynecology
DX: O13.2 Gestational [pregnancy-induced] hypertension without significant proteinuria, second trimester (principal); Z3A.22 22 weeks gestation of pregnancy; Z98.890 Other specified postprocedural states
CPT/HCPCS: 76815; 76817; 81002; 94760; A4649; G0378

== ENCOUNTER 2025-08-21 15:00 | Observation (INO) | payer OTHER ==
[~2025-08-21 15:00] MED LIST changes: -CEPH250C PO; +PROG200C21 PO
--- NOTE | 2025-08-21 17:58 | DVHDS2 ---
Physician Discharge Progress N Final Diagnosis: cramping 22wks Operations or Procedures: Operations or Procedures nst Other Interventions Other Interventions pelvic rest no exercise Condition on Discharge: Good Disposition: Home Discharge Instructions: Diet: Regular Activity: No Restrictions, As Tolerated Medications: na Follow Up Care: Specialist: 1d with ob Discharge Statement: "Patient was advised to return to the ER or call 911 if any headaches, dizziness, shortness of breath, chest pain, abdominal pain, bleeding, fevers, or worsening of medical condition. Patient was counseled about treatment plan, medications, possible side effects, patientverbalized understanding. All questions were answered to the best of my ability. This discharge took greater then 30 minutes in planning, reviewing documentation, counseling the patient, and discussing with other team members." Visit Coding OBGYN Date of Service: Aug 21, 2025 Billing Provider: NANCY RAMIREZ DO MARBLE HELPER Common Visit Codes: [id number] OBS CARE (HIGH) MARBLE HELPER Procedure Codes: 81140-31- NON-STRESS TEST NANCY RAMIREZ DO Aug 21, 2025 17:57
== END 2025-08-21 16:19 | disposition home or self-care (01) ==
LOC: LDRP 15:00
PROVIDERS: ADMIT Obstetrics & Gynecology; ATTEND Obstetrics & Gynecology
DX: O62.9 Abnormality of forces of labor, unspecified (principal); Z3A.22 22 weeks gestation of pregnancy; Z79.899 Other long term (current) drug therapy; Z98.890 Other specified postprocedural states
CPT/HCPCS: 81002; 94760; A4649; G0378